=== PATIENT | female | born 1950 | race Caucasian/White ===

== ENCOUNTER 2019-11-24 22:21 | Emergency (ER) | payer MEDICARE, OTHER ==
[~2019-11-24] VITALS: Ht 165.1 cm; Wt 54.0 kg
[2019-11-24] MEDS ORDERED: glucagon, human recombinant 1mg kit IV ONE (22:30)
[2019-11-24] MEDS ORDERED: LORazepam 2 mg/ml vial IV ONE (22:30)
[2019-11-24] MEDS ORDERED: ondansetron/PF 4mg/2ml inj IV ONE (22:30)
[2019-11-24] MEDS ORDERED: normal saline 1000ML IV soln IVB ONE (22:35)
[2019-11-24 23:59] VITALS: BP 134/84
== END 2019-11-24 23:52 | disposition home or self-care (01) ==
LOC: ER 22:22
DX: T18.128A Food in esophagus causing other injury, initial encounter (principal); X58.XXXA Exposure to other specified factors, initial encounter; Y93.89 Activity, other specified; Y92.89 Other specified places as the place of occurrence of the external cause; Y99.8 Other external cause status
CPT/HCPCS: 96374; 96375; 99284; J1610; J2060; J2405; J7030